=== PATIENT | male | born 2000 ===

== ENCOUNTER 2021-10-25 09:14 | Emergency (ER) | payer OTHER ==
[~2021-10-25] VITALS: Ht 172.7 cm; Wt 68.2 kg
[2021-10-25 09:28] VITALS: TEMP 98.4
[2021-10-25] MEDS ORDERED: CALAN120 MG PO (09:31)
[2021-10-25] MEDS ORDERED: PAMELOR 10MG10 MG PO (09:32)
[2021-10-25] MEDS ORDERED: ZEMBRACE S3 MG/0.5 M SQ (09:33)
[2021-10-25] MEDS ORDERED: NORCO 325 MG-51 TAB PO (10:53)
[2021-10-25 11:48] VITALS: BP 142/81; PULSE 80
== END 2021-10-25 11:51 | disposition home or self-care (01) ==
LOC: COL.ER 09:14
DX: S62.002A Unspecified fracture of navicular [scaphoid] bone of left wrist, initial encounter for closed fracture (principal); Z28.310 Unvaccinated for COVID-19; V80.010A Animal-rider injured by fall from or being thrown from horse in noncollision accident, initial encounter

== ENCOUNTER 2022-01-03 13:11 | Outpatient (CLI) | payer OTHER ==
[~2022-01-03] VITALS: Ht 172.8 cm; Wt 65.9 kg
[~2022-01-03 13:11] MED LIST: CALAN120 MG PO; NORCO 325 MG-51 TAB PO; PAMELOR 10MG10 MG PO; ZEMBRACE S3 MG/0.5 M SQ
[2022-01-03] MEDS ORDERED: NEURONTIN300 MG/CAP PO (13:24)
[2022-01-03] MEDS ORDERED: NEURONTIN600 MG/TAB PO (13:25)
[2022-01-03] MEDS ORDERED: ZANAFLEX CAPSULE4 MG PO (13:26)
[2022-01-03 13:50] LABS: HEMATOCRIT 45.6 % (42.0-52.0); HEMOGLOBIN 16.6 g/dl (13.5-18.0); MEAN CELL VOLUME 87 fl (80.0-100.0); MEAN CORPUSCULAR HEMOGLOBIN 32 pg (27-31); MEAN CORPUSCULAR HGB CONC 36 g/dl (33.0-37.0); MEAN PLATELET VOLUME 8.6 fl (7.4-10.4); PLATELET COUNT 238 K/mm3 (130-400); RED BLOOD COUNT 5.27 M/mm3 (4.20-5.60); REDCELL DISTRIBUTION WIDTH-CV 12.3 % (11.5-14.5)
[2022-01-03 14:01] LABS: INR 1.2 (0.8-3.0); PROTHROMBIN TIME 13.6 SECONDS (9.7-12.8)
[2022-01-03 14:02] VITALS: BP 135/82; PULSE 73; TEMP 97.5
[2022-01-03 14:04] LABS: CALCIUM 9.9 mg/dL (8.4-10.2); CREATININE, serum 0.87 mg/dL (0.72-1.25)
[2022-01-03 15:15] VITALS: BP 103/77; PULSE 71
[2022-01-03 15:30] VITALS: BP 127/68; PULSE 76
[2022-01-03 15:45] VITALS: BP 125/73; PULSE 72
[2022-01-03 16:00] VITALS: BP 115/68; PULSE 69
--- NOTE | 2022-01-03 16:16 | NUR ---
Discharge instructions given to pt.Pt verbalizes understanding.pt escorted out via wheelchair by this nurse.
== END 2022-01-03 16:19 ==
LOC: COL.RAD 13:11
PROVIDERS: Internal Medicine Cardiovascular Disease
DX: R55 Syncope and collapse (principal)
CPT/HCPCS: J2704

== ENCOUNTER → 2023-07-10 | Outpatient (CLI) | payer OTHER ==
[~2023-07-10] MED LIST changes: +Gadoterate 5 ML VIAL IV ONE; +Iohexol 300 - 10 ML VIAL IV ONE; +NEURONTIN300 MG/CAP PO; +NEURONTIN600 MG/TAB PO; +ZANAFLEX CAPSULE4 MG PO
== END ==
LOC: COL.RAD 09:56
DX: M25.511 Pain in right shoulder (principal)
CPT/HCPCS: A9575; Q9967